=== PATIENT | male | born 1995 | race Caucasian/White ===

== ENCOUNTER 2017-12-19 17:04 | Emergency (ER) | payer BC ==
--- NOTE | 2017-12-19 18:03 | EDM.PDOC ---
ED HPI GENERAL MEDICAL PROBLEM - General Chief Complaint: Wound Recheck Stated Complaint: RT ANKLE WOUND, PAIN IN SHOULDER AND CHEST, MRSA Time Seen by Provider: 12/19/17 17:38 Source of Information: Reports: Patient History Limitations: Reports: No Limitations - History of Present Illness INITIAL COMMENTS - FREE TEXT/NARRATIVE: 22 yo male presents to ER with post surgical wound drainage and chest pain. Pt describes intermittent sharp right sided chest pain that "takes my breath away and makes me feel disorientated" last time this occurred was this morning and it lasted for seconds. He denies sweating or nausea during these episodes. He denies cocaine or heroin use. pt had hardware removed from right ankle earlier this month and was placed on Bactrim DS with last dose today. wound was dry until this AM, clear fluid discharge scant. - Related Data Allergies Allergy/AdvReac Type Severity Reaction Status Date / Time azithromycin Allergy Respiratory Verified 12/19/17 17:37 [From Zithromax Z-Joseph] Distress Home Meds: Home Meds Sulfamethoxazole/Trimethoprim [Bactrim 400-80 MG] 1 tab PO DAILY 12/19/17 [ History] Past Medical History Respiratory History: Reports: Asthma Musculoskeletal History: Reports: Fracture Other Musculoskeletal History: right ankle fracture hardware removed after infected with MRSA Neurological History: Reports: Concussion, Migraines Psychiatric History: Reports: Depression, PTSD Oncologic (Cancer) History: Reports: Malignant Melanoma Dermatologic History: Reports: Melanoma - Infectious Disease History Infectious Disease History: Reports: Chicken Pox, Influenza, MRSA - Past Surgical History Neurological Surgical History: Reports: Scoliosis ED ROS GENERAL - Review of Systems Review Of Systems: See Below Constitutional: Denies: Fever, Chills, Malaise, Fatigue Respiratory: Denies: Shortness of Breath, Wheezing Cardiovascular: Reports: Chest Pain GI/Abdominal: Denies: Abdominal Pain Skin: Denies: Rash ED EXAM, GENERAL - Physical Exam Exam: See Below Exam Limited By: No Limitations General Appearance: Alert, WD/WN, No Apparent Distress Respiratory/Chest: No Respiratory Distress, Lungs Clear, Normal Breath Sounds, No Accessory Muscle Use, Chest Non-Tender Cardiovascular: Normal Peripheral Pulses, Regular Rate, Rhythm, No Murmur Extremities: Other (distil ankle surgical wound scany clear drainage, no flucuance noted). No: Pedal Edema, Joint Swelling Course - Vital Signs Last Recorded V/S: Last Vital Signs Temp 36.2 C 12/19/17 18:04 Pulse 86 12/19/17 18:04 Resp 16 12/19/17 18:04 BP 133/85 12/19/17 18:04 Pulse Ox 98 12/19/17 18:04 - Orders/Labs/Meds Orders: Active Orders 24 hr Category Date Time Status EKG Documentation Completion [RC] ASDIRECTED Care 12/19/17 17:53 Active EKG 12 Lead [EK] Routine Ther 12/19/17 17:53 Ordered Labs: Laboratory Tests 12/19/17 12/19/17 Range/Units 18:14 18:14 WBC 7.5 (4.5-11.0) K/uL RBC 5.12 (4.30-5.90) M/uL Hgb 14.8 (12.0-15.0) g/dL Hct 42.0 (40.0-54.0) % MCV 82 (80-98) fL MCH 29 (27-31) pg MCHC 35 (32-36) % Plt Count 291 (150-400) K/uL Neut % (Auto) 39 (36-66) % Lymph % (Auto) 47 H (24-44) % [place] % (Auto) 9 H (2-6) % Eos % (Auto) 5 H (2-4) % Baso % (Auto) 1 (0-1) % Troponin I < 0.017 (0.000-0.056) ng/mL - Re-Assessments/Exams Free Text/Narrative Re-Assessment/Exam: 12/19/17 19:21 EKG WNL and very low cardiovascular risk trp was negative. WBC normal. scant SA drainage he was instructed to follow-up with orthopedic in the morning Departure - Departure Time of Disposition: 19:22 Disposition: Home, Self-Care 01 Condition: Good Clinical Impression: Encounter for postoperative wound check Chest pain Qualifiers: Chest pain type: other chest pain Qualified Code(s): R07.89 - Other chest pain ; R07.8 - Other chest pain Instructions: Chest Wall Pain Referrals: PCP,None [Primary Care Provider] - Forms: ED Department Discharge Additional Instructions: increase fluid intake with goal of 1.5 L per day Follow-up with orthopedic doctor tomorrow - My Orders Last 24 Hours: My Active Orders 12/19/17 17:53 EKG Documentation Completion [RC] ASDIRECTED EKG 12 Lead [EK] Routine - Assessment/Plan Last 24 Hours: My Active Orders 12/19/17 17:53 EKG Documentation Completion [RC] ASDIRECTED EKG 12 Lead [EK] Routine
== END 2017-12-19 20:10 | disposition home or self-care (01) ==
LOC: JP.ED 17:04
DX: T81.89XA Other complications of procedures, not elsewhere classified, initial encounter (principal); R07.89 Other chest pain; Z88.1 Allergy status to other antibiotic agents; Z47.89 Encounter for other orthopedic aftercare
CPT/HCPCS: 36415; 84484; 85025; 93005; 99285-25